=== PATIENT | male | born 1960 | race Caucasian/White ===

== ENCOUNTER 2016-04-27 14:46 | Outpatient (CLI) | payer OTHER ==
[~2016-04-27 14:46] MED LIST: ADVAIR DISKU1 INH; COMBIVENT RESPIMAT; CRESTOR10 MG; HYDROCHLOROTHIA25 MG PO; LISINOPRIL40 MG PO; METFORMIN HCL500 MG PO; NIASPAN1000 ER PO
--- NOTE | 2016-04-28 10:24 | DIAGNOSTIC IMAGING REPORT ---
PROCEDURE: XR TIBIA AND FIBULA - LEFT INDICATION: LEG PAIN TECHNIQUE: Two views of the the tibia and fibula COMPARISON: Correlation made to MR of the left lower extremity performed the same day. FINDINGS: Normal mineralization. No fractures. A 19 mm fibrous cortical defect in the distal fibular diaphysis is noted. No other bony lesions identified. No evidence of periostitis. Normal osseous alignment. No suspicious soft-tissue calcification or radiodense foreign bodies. IMPRESSION: 1. No suspicious changes to the tibia. 2. Incidental note of a tiny distal fibular diaphyseal fibrous cortical defect.
--- NOTE | 2016-04-28 17:32 | DIAGNOSTIC IMAGING REPORT ---
PROCEDURE: MR LOWER EXT JOINT WO CONT-LT INDICATION: LEFT ANKLE PAIN, lower medial leg pain, no known injury TECHNIQUE: Sagittal, coronal, axial, and oblique axial T1 and STIR sequences through the ankle, three plain coronal T1 precontrast sequences through the lower leg, and three plain T1 fat sat postcontrast sequences through the left lower leg. COMPARISON: Plain films performed the same day FINDINGS: Osseous structures: There is ill-defined medullary edema in the distal tibia for length of about 19 cm from the mid diaphysis through the distal epiphysis. Postcontrast, there is mild homogeneous medullary enhancement. A vitamin E capsule on the skin denotes the site of most pain. At this location, there is circumferential, enhancing periostitis and mild subcutaneous edema medially and anteriorly. There happens to be a longitudinally oriented, subendosteal, linear hypointensity in the medullary cavity along the medial side of the bone. There is no significant asymmetric cortical thickening, cortical focus of enhancement, or enhancement within the longitudinal hypointensity. Periostitis and ill-defined osseous edema extends caudally through the physeal scar into the epiphysis of the tibia. The cortical surface does not appear to be disrupted. There is enhancement posterior to the tibial metaphysis affecting the anteromedial aspects of the flexor hallicis longus and flexor digitorum muscles. No T1 hypointense linear fracture planes are seen in the distal tibia. The ankle mortise is intact. The marrow signal in the rest of the ankle and hind foot is normal. Tiny cortical lesion seen by plain film is not evident on the current exam. No suspicious enhancement in this region. Ligaments: Anterior and posterior talofibular ligaments are intact. Proximally, tibiofibular ligaments and interosseous ligaments are intact. Calcaneofibular ligament is normal. On the medial side, and deltoid and spring ligaments appear intact is they can be visualized. Medial retinaculum has a normal appearance. Tendons: There is focal tendinopathy in the distal posterior tibial tendon and just prior to on type 1 os naviculare. No overlying osseous edema. Trace amount of fluid is seen in the posterior tibial tendon sheath proximal to the genu. The other flexor tendons are normal in thickness and signal. Chronic-appearing attenuation and abnormal intermediate signal in the distal aspect of the peroneus brevis tendon without surrounding edema. The extensor tendons appear normal. Achilles tendon appears within normal limits. Soft tissues: The plantar fascia is normal in thickness and signal without mass or edema. Aside from the aforementioned enhancing edema in the flexor muscles proximal to the ankle joint, and the other visible musculature is normal. A very small amount of tibiotalar joint fluid layers anterolaterally, nonspecific. No abnormalities of the sinus tarsi, tarsal tunnel, or neurovascular bundle. IMPRESSION: 1. Diffuse, mildly enhancing distal tibial medullary edema from the diaphysis through epiphysis. There is also periostitis and periosteal enhancement, particularly posterior to the distal tibial metaphysis. Constellation of findings is most suggestive of injury on the continuum of stress fracture. Differential diagnosis includes transient osteoporosis, spontaneous osteonecrosis, reflex sympathetic dystrophy, less likely osteoid osteoma or osteomyelitis. 2. Chronic-appearing focal tendinopathy/scar tissue of the distal posterior tibial tendon or prior repair. 3. 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
== END 2016-04-27 23:00 ==
LOC: MRI SRH 14:46
DX: M79.605 Pain in left leg (principal); R60.9 Edema, unspecified; M86.8X6 Other osteomyelitis, lower leg; S86.312A Strain of muscle(s) and tendon(s) of peroneal muscle group at lower leg level, left leg, initial encounter; M76.72 Peroneal tendinitis, left leg

== ENCOUNTER 2016-05-17 16:24 | Outpatient (CLI) | payer OTHER | END 2016-05-17 23:00 | LOC: LAB SRH 16:24 | DX: M25.572 Pain in left ankle and joints of left foot (principal) | CPT/HCPCS: 90074; 90100; 91585; 92330; 95059; 95150 ==